=== PATIENT | female | born 1995 | race Caucasian/White ===

== ENCOUNTER 2017-09-11 22:50 | Emergency (ER) | payer MEDICAID, OTHER ==
[2017-09-11] MEDS ORDERED: SUCRALFATE 1 GM TABLET PO ONE (23:18)
[2017-09-11] MEDS ORDERED: ONDANSETRON 4 MG TAB.RAPDIS PO ONE (23:18)
[2017-09-11] MEDS ORDERED: FAMOTIDINE 20 MG TABLET PO ONE (23:18)
--- NOTE | 2017-09-11 23:23 | ER Document Report ---
ED GI/ - General Chief Complaint: Chest Pain Stated Complaint: CHEST PAIN Time Seen by Provider: 09/11/17 23:10 Notes: Patient is a 22-year-old female, at 32 weeks gestation, that comes emergency department for chief complaint of chest pain. She states the pain is in her upper abdomen, she feels it radiate to her back intermittently, she states it started earlier today, worsen, she took Tums and improved, she states after eating it worsened again and this time Tums did not improve her symptoms. She vomited once. She denies shortness of breath (she states she has some baseline shortness of breath in her but no new symptoms). She reports normal bowel movement today. Denies fever or chills. Denies dizziness or passing out. She is feeling baby move, no vaginal bleeding or discharge. No daily medications except for vitamins. Only past medical history reported is GERD. She denies smoking, alcohol, recreational drug use, recent long distance travel, or any surgeries. TRAVEL OUTSIDE OF THE [place] IN LAST 30 DAYS: No - Related Data Allergies/Adverse Reactions: banana [Banana] Allergy (Intermediate, Verified 04/18/13 07:39) Past Medical History - General Information source: Patient - Social History Smoking Status: Never Smoker Frequency of alcohol use: None Drug Abuse: None Lives with: Family Family History: Reviewed & Not Pertinent - Medical History Medical History: Negative Surgical Hx: Negative - Immunizations Immunizations up to date: Yes Review of Systems - Review of Systems Constitutional: No symptoms reported EENT: No symptoms reported Cardiovascular: See HPI Respiratory: No symptoms reported Gastrointestinal: See HPI Genitourinary: No symptoms reported Female Genitourinary: No symptoms reported Musculoskeletal: No symptoms reported Skin: No symptoms reported Hematologic/Lymphatic: No symptoms reported Neurological/Psychological: No symptoms reported Physical Exam - Notes Notes: GENERAL: Alert, interacts well. No acute distress. HEAD: Normocephalic, atraumatic. EYES: Pupils equal, round, and reactive to light. Extraocular movements intact. ENT: Oral mucosa moist, tongue midline. NECK: Full range of motion. Supple. Trachea midline. LUNGS: Clear to auscultation bilaterally, no wheezes, rales, or rhonchi. No respiratory distress. HEART: Regular rate and rhythm. No murmur ABDOMEN: Epigastric tenderness, no right upper quadrant or left upper quadrant tenderness. Gravid abdomen. No lower abdominal tenderness. EXTREMITIES: Moves all 4 extremities spontaneously. No edema, normal radial and dorsalis pedis pulses bilaterally. No cyanosis. BACK: no cervical, thoracic, lumbar midline tenderness. No saddle anesthesia, normal distal neurovascular exam. NEUROLOGICAL: Alert and oriented x3. Normal speech. [cranial nerves II through XII grossly intact]. PSYCH: Normal affect, normal mood. SKIN: Warm, dry, normal turgor. No rashes or lesions noted. Course - Re-evaluation Re-evalutation: EKG showing sinus tachycardia at a rate of 104, QTC 427, IA of 120. T-wave inversions in leads III and aVF, no ST segment changes. On my evaluation patient has a heart rate in the 70s, denies shortness of breath, she does have epigastric tenderness on exam and when asked for her pain is she points to the epigastric area. Unfortunately no comparison EKG. CBC unremarkable, chemistry unremarkable, magnesium checked and unremarkable. Urinalysis suggestive of infection, however patient has no urinary symptoms or abdominal pain. Because of late patient will be covered, culture will be placed. Discussed this with patient. On reevaluation patient symptoms resolved after Carafate, Pepcid, Zofran. Suspect this is gastrointestinal in nature. Patient even states it feels like reflux. Tachycardia resolved, patient does not smoke, no lower extremity swelling, no recent travel, no shortness of breath, only epigastric pain. Low suspicion of pulmonary embolism. I also discussed this with patient. EKG was repeated, much improved, easier to read, isolated T-wave inversion, no heart strain pattern or ischemia pattern noted. Discussed this with Dr. Graham. Very low suspicion of acute coronary syndrome with patient's evaluation and epigastric pain. On reevaluation patient stated she is starting to get the symptoms again, she was given a GI cocktail and symptoms resolved again. Patient is asking to go home. Discussed workup, follow-up, return precautions in detail with patient. Patient states understanding and agreement. - Laboratory Result Diagrams: 09/12/17 00:03 09/12/17 00:03 Laboratory results interpreted by me: 09/12/17 09/12/17 09/12/17 00:03 00:03 00:03 WBC 10.6 H RBC 3.58 L Hgb 11.8 L Hct 34.1 L Alkaline Phosphatase 147 H Albumin 3.4 L Urine Protein 30 H Urine Urobilinogen 2.0 H Ur Leukocyte Esterase LARGE H Discharge - Discharge Clinical Impression: Epigastric pain Condition: Stable Disposition: HOME, SELF-CARE Additional Instructions: Your symptoms and evaluations most consistent with esophagitis/gastritis caused from GERD. Take medications as prescribed, avoid spicy foods, caffeine, smoking, alcohol, NSAIDs. Start with bland food and slowly progress. Pphj-jtl-[id number] medication such as Maalox can help in addition to what you have been prescribed. Return to the emergency department for any concerning symptoms including passing out, difficulty breathing, vomiting, vomiting blood, severe pain, black stools, fever, or any other concerning symptoms. Prescriptions: Cephalexin Monohydrate [Keflex 500 mg Capsule] 500 mg PO BID #14 capsule Famotidine [Pepcid 20 mg Tablet] 20 mg PO BID #14 tablet Sucralfate [Carafate 1 gm Tablet] 1 gm PO QID #20 tablet
[2017-09-12 00:23] LABS: ABSOLUTE EOSINOPHILS # (AUTO) 0.1 10^3/uL (0.0-0.6); ABSOLUTE MONOCYTES (AUTO) 0.9 10^3/uL (0.1-1.4); ABSOLUTE NEUT (AUTO) 6.6 10^3/uL (1.7-8.2); BASOPHILS % (AUTO) 0.3 % (0-2); EOSINOPHILS % (AUTO) 0.7 % (0-6); HEMATOCRIT 34.1 % (36.0-47.0); HEMOGLOBIN 11.8 g/dL (12.0-15.5); LYMPHOCYTES % (AUTO) 28.6 % (13-45); MEAN CORPUSCULAR HGB CONC 34.6 g/dL (32.0-36.0); MEAN CORPUSCULAR VOLUME 95 fl (80-97); MONOCYTES % (AUTO) 8.5 % (3-13); PLATELET COUNT 202 10^3/uL (150-450); RED BLOOD COUNT 3.58 10^6/uL (3.72-5.28); SEGMENTED NEUTROPHILS % (AUTO) 61.9 % (42-78); TOTAL CELLS COUNTED % (AUTO) 100 %; WHITE BLOOD COUNT 10.6 10^3/uL (4.0-10.5)
[2017-09-12 00:30] LABS: ALANINE AMINOTRANSFERASE 13 U/L (9-52); ALBUMIN 3.4 g/dL (3.5-5.0); ALKALINE PHOSPHATASE 147 U/L (38-126); ANION GAP 11 (5-19); ASPARTATE AMINO TRANSFERASE 14 U/L (14-36); BILIRUBIN,DIRECT 0.2 mg/dL (0.0-0.4); BILIRUBIN,TOTAL 0.3 mg/dL (0.2-1.3); BLOOD UREA NITROGEN 7 mg/dL (7-20); CARBON DIOXIDE 22 mmol/L (22-30); CHLORIDE 106 mmol/L (98-107); GLUCOSE 82 mg/dL (75-110); LIPASE 63.7 U/L (23-300); SODIUM 138.7 mmol/L (137-145); TOTAL PROTEIN 6.5 g/dL (6.3-8.2)
[2017-09-12 01:01] LABS: APPEARANCE,URINE CLEAR; BILIRUBIN,URINE NEGATIVE (NEGATIVE); COLOR,URINE STRAW; GLUCOSE, URINE NEGATIVE (NEGATIVE); KETONES,URINE NEGATIVE (NEGATIVE); URINE SPECIFIC GRAVITY 1.024
[2017-09-12 01:06] LABS: PROTEIN,URINE 30 mg/dL (NEGATIVE)
[2017-09-12 01:07] LABS: ADD MANUAL MICROSCOPIC YES; LEUKOCYTE ESTERASE,URINE LARGE (NEGATIVE); NITRITE,URINE NEGATIVE (NEGATIVE)
[2017-09-12 01:08] LABS: BACTERIA,URINE 1+ /HPF
[2017-09-12] MEDS ORDERED: LIDOCAINE 2% VISCOUS SOLN 20 ML UDCUP PO ONE (01:46)
[2017-09-12] MEDS ORDERED: METOCLOPRAMIDE HCL ORAL SOLN 10 MG/10 ML UDCUP PO ONE (01:46)
[2017-09-12] MEDS ORDERED: MAG HYDROX/AL HYDROX/SIMETH SUSP 30 ML UDCUP PO ONE (01:46)
[2017-09-12 03:41] VITALS: BP 119/80
--- NOTE | 2017-09-12 18:22 | EKG REPORT ---
SEVERITY:- ABNORMAL ECG - SINUS ARRHYTHMIA, RATE 59-96 PROBABLE LEFT ATRIAL ABNORMALITY PROBABLE LEFT VENTRICULAR HYPERTROPHY ABNORMAL T, CONSIDER ISCHEMIA, INFERIOR LEADS : Confirmed by: Saundra Caldera 12-Sep-2017 18:21:28
--- NOTE | 2017-09-12 18:22 | EKG REPORT ---
SEVERITY:- ABNORMAL ECG - SINUS TACHYCARDIA MICHAEL, CONSIDER BIATRIAL ABNORMALITIES PROBABLE LVH WITH SECONDARY REPOL ABNRM : Confirmed by: Saundra Caldera 12-Sep-2017 18:21:36
== END 2017-09-12 03:27 | disposition home or self-care (01) ==
LOC: ER 22:50
DX: O26.893 Other specified pregnancy related conditions, third trimester (principal); R10.13 Epigastric pain; R06.02 Shortness of breath; R00.0 Tachycardia, unspecified; O21.2 Late vomiting of pregnancy; Z3A.32 32 weeks gestation of pregnancy; Z87.19 Personal history of other diseases of the digestive system; Z79.899 Other long term (current) drug therapy; Z91.018 Allergy to other foods
CPT/HCPCS: 93005 ×2; 99285; 36415; 87086; 83690; 83735; 85025; 80053; 81001; 93010 ×2; J3490 ×5; S0119

== ENCOUNTER 2017-10-14 22:57 | Inpatient (IN) | payer MEDICAID ==
[2017-10-14 23:26] LABS: APPEARANCE,URINE SLIGHTLY-CLOUDY; BILIRUBIN,URINE NEGATIVE (NEGATIVE); COLOR,URINE YELLOW; GLUCOSE, URINE NEGATIVE (NEGATIVE); KETONES,URINE NEGATIVE (NEGATIVE); LEUKOCYTE ESTERASE,URINE LARGE (NEGATIVE); NITRITE,URINE NEGATIVE (NEGATIVE); PROTEIN,URINE NEGATIVE (NEGATIVE); URINE SPECIFIC GRAVITY 1.023
[2017-10-14] MEDS ORDERED: DINOPROSTONE 10 MG VAGINAL INSERT.SR PV PRN (23:31)
[2017-10-14] MEDS ORDERED: RINGERS SOLUTION,LACTATED 1,000 ML IV PRN (23:31)
[2017-10-14] MEDS ORDERED: RINGERS SOLUTION,LACTATED 300 ML IV ONE (23:31)
[2017-10-14 23:45] LABS: URINE AMPHETAMINES SCREEN NEGATIVE; URINE BARBITURATES SCREEN NEGATIVE; URINE BENZODIAZEPINES SCREEN NEGATIVE; URINE COCAINE SCREEN NEGATIVE; URINE MARIJUANA (THC) SCREEN NEGATIVE; URINE METHADONE SCREEN NEGATIVE; URINE PHENCYCLIDINE SCREEN NEGATIVE
[2017-10-14] MEDS ORDERED: ZOLPIDEM TARTRATE 5 MG TABLET PO ONE (23:45)
[2017-10-15 00:13] LABS: ABSOLUTE MONOCYTES (AUTO) 0.8 10^3/uL (0.1-1.4); ABSOLUTE NEUT (AUTO) 5.7 10^3/uL (1.7-8.2); BASOPHILS % (AUTO) 0.4 % (0-2); EOSINOPHILS % (AUTO) 0.4 % (0-6); HEMOGLOBIN 12.1 g/dL (12.0-15.5); LYMPHOCYTES % (AUTO) 31.3 % (13-45); MEAN CORPUSCULAR HEMOGLOBIN 32.9 pg (27.0-33.4); MEAN CORPUSCULAR HGB CONC 34.6 g/dL (32.0-36.0); MEAN CORPUSCULAR VOLUME 95 fl (80-97); MONOCYTES % (AUTO) 8.1 % (3-13); PLATELET COUNT 184 10^3/uL (150-450); RED BLOOD COUNT 3.69 10^6/uL (3.72-5.28); RED CELL DISTRIBUTION WIDTH 13.2 % (11.5-14.0); SEGMENTED NEUTROPHILS % (AUTO) 59.8 % (42-78); TOTAL CELLS COUNTED % (AUTO) 100 %; WHITE BLOOD COUNT 9.5 10^3/uL (4.0-10.5)
[2017-10-15] MEDS ORDERED: DINOPROSTONE 10 MG VAGINAL INSERT.SR ONE (00:24)
--- NOTE | 2017-10-15 06:04 | Admission Physical ---
Datetime Report Generated by CPN: 10/15/2017 06:04 CURRENT ADMISSION Chief Complaint: Scheduled Induction of Labor Indication for Induction: Post Dates Admit Impression : Postterm, Intrauterine ; Induction of Labor Admit Plan: Admit to Unit; Initiate Labor Induction Protocol ALLERGIES Medication Allergies: No Medication Allergies: banana/MO (10/14/2017) Latex: No Latex Allergies Food Allergies: Banana Environmental Allergies: cats OBSTETRICAL HISTORY EDC: 10/05/2017 00:00 : 1 Para: 0 Term: 0 : 0 SAB: 0 IAB: 0 Ectopic: 0 Livin Cesareans: 0 VBACs: 0 Multiple Births: 0 Gestational Diabetes: No Rh Sensitization: No Incompetent Cervix: No PRASANNA: No Infertility: No ART Treatment: No Uterine Anomaly: No IUGR: No Hx Previous C/S: No Macrosomia: No Hx Loss/Stillborn: No PIH: No Hx : No Placenta Previa/Abruption: No Depression/PP Depression: No PTL/PROM: No Post Hemorrhage: No Current Procedures: Ultrasound; NST Obstetrical History Comments: G1-Current late to [facility] SEE RECORDS Alcohol: No Marijuana : No Cocaine: No Other Illicit Drugs: No Cigarettes: Never Smoker. [id number] MEDICAL HISTORY Diabetes: No Blood Transfusion: No Pulmonary Disease (Asthma, TB): Yes Breast Disease: No Hypertension: No Investment Counselor Surgery: No Heart Disease: No Hosp/Surgery: No Autoimmune Disorder: No Anesthetic Complications: No Kidney Disease: No Abnormal Pap Smear: No Neuro/Epilepsy: No Psychiatric Disorders: Yes Other Medical Diseases: No Hepatitis/Liver Disease: No Significant Family History: No Varicosities/Phlebitis: No Trauma/Violence : No Thyroid Dysfunction: No Medical History Comments: Depression, anxiety, Obesity, asthma INFECTIOUS HISTORY Gonorrhea: No Genital Herpes: No Chlamydia: No Tuberculosis: No Syphilis: No Hepatitis: No HIV/AIDS Exposure: No Rash or Viral Illness: No HPV: No PHYSICAL EXAM General: Normal HEENT: Normal Neurologic: Normal Thyroid: Normal Heart: Normal Lungs: Normal Breast: Normal Back: Normal Abdomen: Normal Genitourinary Exam: Normal Extremities: Normal DTRs: Normal Pelvic Type: Adequate Vital Signs: Reviewed; Within Normal Limits VAGINAL EXAM Dilatation: 1 Effacement: 60 Station: -2 MEMBRANES Pooling: Negative Membranes: Intact FETUS A EGA: 41.3 Monitoring: External US FHR- Baseline: 120 Variability: Moderate 6-25bpm Accelerations: 15X15 Decelerations: None FHR Category: Category I Estimated Weight (gm): 3500 Presentation: Vertex PLANS FOR LABOR AND DELIVERY Labor and Delivery: Plan Pain Management: Medications Feeding Preference: Breast Circumcision: No INFORMED CONSENT Signature: with User ID: [email or web address]
[2017-10-15] MEDS ORDERED: OXYTOCIN/NORMAL SALINE 20 UNIT/1,000 ML RTUINJ IV PRN ×2 (10:27→21:05)
[2017-10-15] MEDS ORDERED: OXYTOCIN/NORMAL SALINE 20 UNIT/1,000 ML RTUINJ ONE (10:33)
[2017-10-15] MEDS ORDERED: FENTANYL/BUPIVACAINE/NS/PF 200 MCG/100 ML RTUINJ EPI ONE (12:39)
[2017-10-15] MEDS ORDERED: EPHEDRINE SULFATE INJ 50 MG/1 ML AMPULE ONE (12:39)
[2017-10-15] MEDS ORDERED: BUPIVACAINE HCL 0.5 % INJ/PF 30 ML SDV ONE (12:40)
--- NOTE | 2017-10-15 13:14 | L&D Progress Notes ---
PROGRESS NOTES Datetime Report Generated by CPN: 10/15/2017 13:14 PROGRESS NOTE Impression: Normal Progression of Labor Procedures: Artificial ROM Plan: Continue Present Management Comment: Pt requesting epidural for pain mgmt, pitocin at 6 mu VAGINAL EXAM Dilatation: 3 Dilatation: 1 Effacement: 100 Effacement: 60 Station: -2 Station: -2 MEMBRANES Pooling: Negative Membranes: Ruptured Membranes: Intact Amniotic Fluid Color: Clear FETUS A FHR - Baseline: 135 Variability: Moderate 6-25bpm Accelerations: 15X15 Decelerations: Variable FHR Category: Category II : 41.3 : 41.3 Estimated Weight (gm): 3500 Presentation: Vertex SIGNATURE SIGNATURE: ,[id number] SIGNATURE: [id number] Assignment: Aleksandra Betancourt MD Signature: with User ID: [email or web address] : with User ID: [email or web address]
[2017-10-15] MEDS ORDERED: LIDOCAINE 1% INJ-PF (10 MG/ML) 30 ML SDV ONE ×2 (13:59→16:43)
[2017-10-15] MEDS ORDERED: FENTANYL CITRATE INJ/PF 100 MCG/2 ML AMPUL IV ONE (14:24)
[2017-10-15] MEDS ORDERED: MISOPROSTOL 0.2 MG TABLET ONE (16:43)
[2017-10-15] MEDS ORDERED: ACETAMINOPHEN WITH CODEINE #3 TABLET PO PRN ×2 (21:05)
[2017-10-15] MEDS ORDERED: DIPHENHYDRAMINE HCL 25 MG CAPSULE PO PRN (21:05)
[2017-10-15] MEDS ORDERED: MAGNESIUM HYDROXIDE SUSP 30 ML UDCUP PO PRN (21:05)
[2017-10-15] MEDS ORDERED: BENZOCAINE/MENTHOL AEROSOL SPRAY 56 ML TOP PRN (21:05)
[2017-10-15] MEDS ORDERED: DIBUCAINE 1% OINTMENT 28 GM TP PRN (21:05)
[2017-10-15] MEDS ORDERED: ACETAMINOPHEN 650 MG SUPP.RECT PR PRN (21:05)
[2017-10-15] MEDS ORDERED: MEASLES,MUMPS&RUBELLA VACC/PF 0.5 ML VIAL SUBCUT PRN (21:05)
[2017-10-15] MEDS ORDERED: PROMETHAZINE HCL 25 MG SUPP.RECT PR PRN (21:05)
[2017-10-15] MEDS ORDERED: NA PHOS,M-B/NA PHOS,DI-BA (ADULT) 133 ML ENEMA PR PRN (21:05)
[2017-10-15] MEDS ORDERED: PROMETHAZINE HCL 25 MG TABLET PO PRN (21:05)
[2017-10-15] MEDS ORDERED: ZOLPIDEM TARTRATE 5 MG TABLET PO PRN (21:05)
[2017-10-15] MEDS ORDERED: PSEUDOEPHEDRINE HCL 30 MG TABLET PO PRN (21:05)
[2017-10-15] MEDS ORDERED: PROMETHAZINE HCL INJ 25 MG/1 ML VIAL IV PRN (21:05)
[2017-10-15] MEDS ORDERED: DIPH/PERTUSS(ACELL)/TETANUS VAC/PF 0.5 ML SYR (>=10YO) IM PRN (21:05)
[2017-10-15] MEDS ORDERED: GLYCERIN/WITCH HAZEL LEAF 1 EACH MED..PAD TP PRN (21:05)
[2017-10-15] MEDS ORDERED: IBUPROFEN 800 MG TABLET ONE (21:41)
[2017-10-15] MEDS: FAMOTIDINE 20 MG TABLET PO SCH (21:48)
[2017-10-15] MEDS ORDERED: IBUPROFEN 800 MG TABLET PO SCH (22:00)
[2017-10-15] MEDS ORDERED: ZOLPIDEM TARTRATE 5 MG TABLET PO SCH (22:00)
[2017-10-16] MEDS ORDERED: OXYTOCIN/NORMAL SALINE 20 UNIT/1,000 ML RTUINJ IV PRN (01:24)
[2017-10-16] MEDS ORDERED: BENZOCAINE/MENTHOL AEROSOL SPRAY 56 ML TOP PRN (01:24)
[2017-10-16] MEDS ORDERED: DIBUCAINE 1% OINTMENT 28 GM TP PRN (01:24)
[2017-10-16] MEDS ORDERED: MEASLES,MUMPS&RUBELLA VACC/PF 0.5 ML VIAL SUBCUT PRN (01:24)
[2017-10-16] MEDS ORDERED: DIPH/PERTUSS(ACELL)/TETANUS VAC/PF 0.5 ML SYR (>=10YO) IM PRN (01:24)
[2017-10-16] MEDS ORDERED: ACETAMINOPHEN WITH CODEINE #3 TABLET PO PRN ×2 (01:24)
[2017-10-16] MEDS ORDERED: ZOLPIDEM TARTRATE 5 MG TABLET PO PRN (01:24)
[2017-10-16] MEDS: FAMOTIDINE 20 MG TABLET PO SCH ×2 (09:23→22:01)
[2017-10-16] MEDS: PRENATAL VITAMIN W DHA CAPSULE PO SCH (09:23)
[2017-10-16 09:24] LABS: HEMATOCRIT 31.1 % (36.0-47.0); HEMOGLOBIN 10.6 g/dL (12.0-15.5); MEAN CORPUSCULAR HEMOGLOBIN 32.8 pg (27.0-33.4); MEAN CORPUSCULAR HGB CONC 34.1 g/dL (32.0-36.0); MEAN CORPUSCULAR VOLUME 96 fl (80-97); PLATELET COUNT 159 10^3/uL (150-450); RED BLOOD COUNT 3.23 10^6/uL (3.72-5.28); RED CELL DISTRIBUTION WIDTH 13.6 % (11.5-14.0); WHITE BLOOD COUNT 15.5 10^3/uL (4.0-10.5)
[2017-10-16] MEDS: SENNOSIDES/DOCUSATE 8.6-50 MG 1 EACH TABLET PO SCH (09:24)
[2017-10-16] MEDS: DOCUSATE SODIUM 100 MG CAPSULE PO SCH ×2 (09:24→17:37)
[2017-10-16] MEDS: FERROUS SULFATE 325 MG TABLET PO SCH ×2 (09:24→17:36)
[2017-10-16] MEDS ORDERED: SENNOSIDES/DOCUSATE 8.6-50 MG 1 EACH TABLET PO SCH (10:00)
[2017-10-16] MEDS ORDERED: DOCUSATE SODIUM 100 MG CAPSULE PO SCH (10:00)
[2017-10-16] MEDS ORDERED: FERROUS SULFATE 325 MG TABLET PO SCH (10:00)
[2017-10-16] MEDS ORDERED: PRENATAL VITAMIN W DHA CAPSULE PO SCH (10:00)
--- NOTE | 2017-10-16 10:30 | PDOC PROGRESS REPORT ---
Subjective-OB Progress Note for:: 10/16/17 Subjective: Doing well, no c/o, Physical Exam (OB) Vital Signs: Temp Pulse Resp BP Pulse Ox 97.9 F 106 H 20 110/69 99 10/15/17 23:31 10/15/17 23:31 10/15/17 23:31 10/15/17 23:31 10/15/17 23:31 Intake & Output 10/15/17 10/16/17 10/17/17 06:59 06:59 06:59 Intake Total 200 Balance 200 Weight 103.9 kg - PIH/Pre-Eclampsia DTR's: 1 + Headache: Absent Epigastric Pain: No Visual Changes: No - Lochia Lochia Amount: Scant < 10 ml Lochia Color: Rubra/Red - Abdomen Description: Tender, Soft Hernia Present: No Fundal Description: Firm, Midline Fundal Height: u/u - u/2 Objective-Diagnostic Laboratory: 10/16/17 07:59 10/16/17 07:59 WBC 15.5 H RBC 3.23 L Hgb 10.6 L Hct 31.1 L MCV 96 MCH 32.8 MCHC 34.1 RDW 13.6 Plt Count 159 Assessment and Plan(PN) - Assessment and Plan (1) Asthma Qualifiers: Asthma complication type: unspecified Is this a current diagnosis for this admission?: Yes (2) Delivery normal Is this a current diagnosis for this admission?: Yes (3) Depression Qualifiers: Depression Type: unspecified Qualified Code(s): F32.9 - Major depressive disorder, single episode, unspecified Is this a current diagnosis for this admission?: Yes (4) Anxiety Is this a current diagnosis for this admission?: Yes - Time Spent with Patient Time with patient: Less than 15 minutes Medications reviewed and adjusted accordingly: Yes - Disposition Anticipated Discharge: Home Within: within 48 hours
[2017-10-16] MEDS: IBUPROFEN 800 MG TABLET PO SCH ×2 (11:00→17:37)
[2017-10-17] MEDS: IBUPROFEN 800 MG TABLET PO SCH (05:38)
[2017-10-17 08:22] VITALS: BP 119/60
[2017-10-17] MEDS ORDERED: IBUPROFEN 800 MG TABLET PO SCH (10:00)
[2017-10-17] MEDS: DOCUSATE SODIUM 100 MG CAPSULE PO SCH (10:05)
[2017-10-17] MEDS: SENNOSIDES/DOCUSATE 8.6-50 MG 1 EACH TABLET PO SCH (10:05)
[2017-10-17] MEDS: FAMOTIDINE 20 MG TABLET PO SCH (10:06)
[2017-10-17] MEDS: PRENATAL VITAMIN W DHA CAPSULE PO SCH (10:06)
[2017-10-17] MEDS: FERROUS SULFATE 325 MG TABLET PO SCH (10:06)
--- NOTE | 2017-10-17 10:13 | PDOC DISCHARGE SUMMARY ---
Final Diagnosis Discharge Date: 10/17/17 - Final Diagnosis (1) Delivery normal Is this a current diagnosis for this admission?: Yes Discharge Data - Discharge Medication Prescriptions: Ibuprofen [Motrin 800 mg Tablet] 800 mg PO Q8A #30 tablet Home Medications: Prenatl Vit6/Iron/FA/B12/Ca/D3 [Mteryti Combo Pack] 1 each PO DAILY 10/14/17 Ibuprofen [Motrin 800 mg Tablet] 800 mg PO Q8A #30 tablet 10/17/17 Reason(s) for Admission: Onset of Labor - Diagnosis Test Laboratory: Temp Pulse Resp BP Pulse Ox 98.2 F 62 18 119/60 98 10/17/17 07:58 10/17/17 07:58 10/17/17 07:58 10/17/17 07:58 10/17/17 07:58 10/14/17 10/14/17 10/16/17 23:00 23:26 07:59 RBC 3.69 L 3.23 L Hgb 12.1 10.6 L Hct 35.0 L 31.1 L Urine Opiates Screen NEGATIVE - Discharge information/Instructions Discharge Activity: Pelvic Rest, No tub bath Discharge Diet: As Tolerated Disposition: HOME, SELF-CARE Follow up with: [facility] in: 4, Weeks
--- NOTE | 2017-10-30 11:16 | Delivery Summary ---
Del Sum A-C Datetime Report Generated by CPN: 10/30/2017 11:16 DELIVERY PERSONNEL DELIVERY PERSONNEL: [id number] Delivery Doctor:: Aleksandra Betancourt MD Labor and Delivery Nurse:: Malina Santos RN Labor and Delivery Nurse:: Patricia Sommer RN Nursery Nurse:: Sydnee Saeed RN Straw Baler/CARLOS: Fara Pizarro CNA Additional Personnel: : Marli Hines RN MATERNAL INFORMATION Delivery Anesthesia: Epidural Medications After Delivery: Pitocin Drip 20 Units/1000ml NSS Estimated Blood Loss (ml): 250 Maternal Complications: None LABOR SUMMARY EDC: 10/05/2017 00:00 No. Babies in Womb: 1 Attempted: No Labor Anesthesia: Epidural LABOR INFORMATION Reason for Induction: Postterm Onset of Labor: 10/15/2017 10:52 Complete Dilatation: 10/15/2017 19:19 Oxytocin: Induction Group B Beta Strep: Negative Steroids Given: None Reason Steroids Not Administered: Not Applicable MEMBRANES Membranes Rupture Method: Artificial Rupture of Membranes: 10/15/2017 13:05 Length of Rupture (hr): 7.65 Amniotic Fluid Color: Clear Amniotic Fluid Amount: Small Amniotic Fluid Odor: Normal STAGES OF LABOR Stage 1 hr: 8 Stage 1 min: 27 Stage 2 hr: 1 Stage 2 min: 25 Stage 3 hr: 0 Stage 3 min: 3 Total Time in Labor hr: 9 Total Time in Labor min: 55 VAGINAL DELIVERY Episiotomy: None Laceration #1: Perineal Laceration Extension #1: Second Degree Laceration #2: None Laceration Extension #2: N/A Laceration #3: None Laceration Extension #3: N/A Laceration Repair: Yes Laceration Repair Note: repair with 3-0 chromic suture in usual fashion Sponge Count Correct: N/A; Vaginal Sweep Performed Sharps Count Correct: Yes CSECTION DELIVERY Primary Indication: N/A Secondary Indication: N/A CSection Incidence: N/A Labor: N/A Elective: N/A CSection Incision: N/A BABY A INFORMATION Delivery Date/Time: 10/15/2017 20:44 Method of Delivery: Vaginal Method of Delivery: Vaginal Born in Route : No : N/A Forceps: N/A Vacuum Extraction: Successful Shoulder Dystocia : No ASSISTED DELIVERY BABY A Indication for Assisted Delivery: Maternal exhaustion Catheter Prior to Procedure: No Station Vacuum/Forcep Apply: outlet Position Vacuum/Forcep Apply: Right Occipital Anterior Vacuum Number of Pulls: one Vacuum Number of PopOffs: none Vacuum Maximum Pressure Obtained: 550 Reduce Pressure btwn Ctx: Yes Vacuum Whipped Topping Finisher: Isis Total Time Vacuum Applied: 20 seconds Vacuum/Forceps Comment: Delivery with one pull with the pressure in the green on the kiwi. The mother gave verbal consent prior to the procedure. PRESENTATION/POSITION BABY A Presentation: Cephalic Presentation: Cephalic Cephalic Presentation: Vertex Vertex Position: Right Occipital Anterior Breech Presentation: N/A PLACENTA INFORMATION BABY A Placenta Delivery Time : 10/15/2017 20:47 Placenta Method of Delivery: Spontaneous Placenta Method of Delivery: Spontaneous Placenta Status: Delivered SCORES BABY A Heart Rate 1 min: >100 bpm Resp Effort 1 min: Good Cry Reflex Irritability 1 min: Cough or Sneeze or Pulls Away Muscle Tone 1 min: Active Motion Color 1 min: Blue/Pale Resuscitation Effort 1 min: Tactile Stimulation SCORE 1 MIN: 8 Heart Rate 5 min: >100 bpm Resp Effort 5 min: Good Cry Reflex Irritability 5 min: Cough or Sneeze or Pulls Away Muscle Tone 5 min: Active Motion Color 5 min: Body Sheldahl, Extremities Blue Resuscitation Effort 5 min: Tactile Stimulation SCORE 5 MIN: 9 INFANT INFORMATION BABY A Gestational Age at Delivery: 41.3 Gestational Status: Late Term- 41- 41.6 Weeks Outcome : Liveborn Condition : Stable Infant Sex: Male Infant Sex: Male IDENTIFICATION BABY A Verification Date/Time: 10/15/2017 20:54 ID Band Number: [id number] Mother's Name Verified: Yes Infant RN Verifying : Jason Santos, ALIYA Pizarro RN WEIGHT/LENGTH BABY A Infant Birthweight (gm): 3660 Infant Weight (lb): 8 Infant Weight (oz): 1 Length (in): 20.00 Length (cm): 50.80 CORD INFORMATION BABY A No. Cord Vessels: 3 Nuchal Cord : N/A Cord Blood Taken: Yes-For Eval (Mom's Blood Type - or O+) Infant Suction: Mouth; Nose ASSESSMENT BABY A Infant Complications: None Physical Findings at Delivery: Within Normal Limits Respirations: Appears Normal Skin to Skin: Yes Skin to Skin: Yes Top Icer/ALS Called : No Infant Care By: Keaton Hines RN Transferred To: Remains with Mother SIGNATURES Signature: with User ID: [email or web address] : I was personally available for consultation and serving as supervising physician for the P.
== END 2017-10-17 16:10 | disposition home or self-care (01) | DRG 775 ==
LOC: LR 22:57 → 2N 10-15 23:33
PROVIDERS: ADMIT Obstetrics & Gynecology; ATTEND Obstetrics & Gynecology
PROC: 10D07Z6 Extraction of Products of Conception, Vacuum, Via Natural or Artificial Opening (ICD-10-PCS; principal; 2017-10-15)
DX: O48.0 Post-term pregnancy (principal); Z37.0 Single live birth; O99.52 Diseases of the respiratory system complicating childbirth; O99.344 Other mental disorders complicating childbirth; O99.214 Obesity complicating childbirth; O70.1 Second degree perineal laceration during delivery; O75.81 Maternal exhaustion complicating labor and delivery; J45.909 Unspecified asthma, uncomplicated; F41.8 Other specified anxiety disorders; Z3A.41 41 weeks gestation of pregnancy
CPT/HCPCS: 36415; 80307; 81005; 85025; 85027; 86592; 86850; 86900; 86901; 94760; J2590; J3490

== ENCOUNTER 2019-09-21 11:37 | Emergency (ER) | payer MEDICAID ==
[2019-09-21 12:41] VITALS: BP 140/80
[2019-09-21] MEDS ORDERED: KETOROLAC TROMETHAMINE INJ/PF 30 MG/1 ML SDV IV ONE (13:33)
--- NOTE | 2019-09-21 13:54 | ER Document Report ---
Entered by HELADIO HUTTON SCRIBE 09/21/19 1338 Acting as scribe for:YAMEL MERCER MD ED GI/ - General Chief Complaint: Abdominal Pain Stated Complaint: ABDOMINAL PAIN Time Seen by Provider: 09/21/19 13:09 Primary Care Provider: CAROL SIMPSON MD [Primary Care Provider] - Follow up as needed Mode of Arrival: Ambulatory Information source: Patient Notes: This 24 year old female patient presents to the emergency department today with complaints of lower back and diffuse abdominal pain yesterday which got worst last night. She reports that between 10:40-11:00 AM this morning when using the bathroom the pain became much worse and localized to her left flank and left abdomen. Now she reports a dull ache in the left flank and abdominal discomfort. Patient is nauseated but denies vomiting. TRAVEL OUTSIDE OF THE [place] IN LAST 30 DAYS: No - Related Data Allergies/Adverse Reactions: banana [Banana] Allergy (Intermediate, Verified 09/21/19 13:48) cat dander Allergy (Verified 09/21/19 13:48) dog dander Allergy (Verified 09/21/19 13:48) Past Medical History - General Information source: Patient - Social History Smoking Status: Never Smoker Cigarette use (# per day): No Frequency of alcohol use: None Drug Abuse: None Occupation: unemployed Lives with: Family Family History: Other - Father has a history of kidney stones. Musculoskeletal Medical History: Reports Hx Arthritis Surgical Hx: Negative - Immunizations Immunizations up to date: Yes Review of Systems - Review of Systems Constitutional: No symptoms reported EENT: No symptoms reported Cardiovascular: No symptoms reported Respiratory: No symptoms reported Gastrointestinal: See HPI, Abdominal pain, Nausea. denies: Vomiting Genitourinary: See HPI, Flank pain Female Genitourinary: Last menstrual period - Sep 10 Musculoskeletal: See HPI, Back pain Skin: No symptoms reported Hematologic/Lymphatic: No symptoms reported Neurological/Psychological: No symptoms reported -: Yes All other systems reviewed and negative Physical Exam - Vital signs Vitals: Temp 98.6 F 09/21/19 12:36 - Notes Notes: Physical Exam: General: Alert, appears well. HEENT: Normocephalic. Atraumatic. PERRL. Extraocular movements intact. Oropharynx clear. Neck: Supple. Non-tender. Respiratory: No respiratory distress. Clear and equal breath sounds bilaterally. Cardiovascular: Regular rate and rhythm. Abdominal: Obese. No suprapubic tenderness to palpation. No distension. Normal Bowel Sounds. Back: Tenderness with palpation of the paralumbar musculature. Mild left CVA tenderness to percussion. Extremities: Moves all four extremities. Upper extremities: Normal inspection. Normal ROM. Lower extremities: Normal inspection. No edema. Normal ROM. Neurological: Normal cognition. AAOx4. Normal speech. Psychological: Normal affect. Normal Mood. Skin: Warm. Dry. Normal color. Course - Re-evaluation Re-evalutation: 09/21/19 15:27 Catheterized urine showed 121 RBCs on micro and large blood on dipstick. CT scan suggested 3 mm stone near the bladder and possibly some minimal hydroureter hydronephrosis on the left. Patient reports that the pain had been getting better before she came, and is much better after the Toradol. - Vital Signs Vital signs: Temp Pulse Resp BP Pulse Ox 98.6 F 72 18 140/80 H 100 09/21/19 12:39 09/21/19 12:39 09/21/19 12:39 09/21/19 12:39 09/21/19 12:39 - Laboratory Result Diagrams: 09/21/19 13:40 09/21/19 13:40 Laboratory results interpreted by me: 09/21/19 14:12 Urine Blood LARGE H Discharge - Discharge Clinical Impression: Renal colic on left side Condition: Stable Disposition: HOME, SELF-CARE Additional Instructions: Kidney Stone: You are passing a kidney stone. These stones are usually due to increased calcium or uric acid concentrations in your urine. Stones within the kidney itself are not painful. The pain occurs as the stone leaves the kidney to pass down the long tube, called the ureter, leading to the bladder. If the stone is small, it will usually pass by itself. Most patients can pass the stone at home. You will usually receive medications for pain, nausea or vomiting, and sometimes a medication to assist in passing the kidney stone. However, if the pain is very severe or if vomiting prevents you from taking oral pain medications, you may need to return for further treatment. Drink three or four quarts of fluids per day. You will be given pain medication (if needed) and urine strainers. Strain all your urine to see if the stone passes. If your doctor has asked you to bring the stone in for analysis, return with the stone once it has passed. Return if pain or vomiting become severe, if you develop a high fever, if you are unable to pass your urine, or if other unusual symptoms occur. Start taking the Flomax as prescribed tomorrow, until you pass the stone or are no longer in pain. Drink plenty of water throughout the day in the evening. Strain your urine. Take ibuprofen 600 mg every 8 hours until you pass the stone or have become pain-free. Take the pain medication as dispensed if ibuprofen is not enough to control your pain. Follow-up with your primary care provider if not improving. RETURN TO THE EMERGENCY ROOM IF ANY NEW OR WORSENING SYMPTOMS. Prescriptions: Tamsulosin HCl [Flomax 0.4 mg Cap.sr] 0.4 mg PO DAILY #7 cap.sr.24h Referrals: CAROL SIMPSON MD [Primary Care Provider] - Follow up as needed I personally performed the services described in the documentation, reviewed and edited the documentation which was dictated to the scribe in my presence, and it accurately records my words and actions.
[2019-09-21 14:01] LABS: ABSOLUTE EOSINOPHILS # (AUTO) 0.1 10^3/uL (0.0-0.6); ABSOLUTE LYMPHOCYTES (AUTO) 2.6 10^3/uL (0.5-4.7); ABSOLUTE MONOCYTES (AUTO) 0.6 10^3/uL (0.1-1.4); ABSOLUTE NEUT (AUTO) 4.5 10^3/uL (1.7-8.2); BASOPHILS % (AUTO) 0.3 % (0-2); EOSINOPHILS % (AUTO) 0.7 % (0-6); HEMATOCRIT 40.8 % (36.0-47.0); HEMOGLOBIN 14.5 g/dL (12.0-15.5); MEAN CORPUSCULAR HEMOGLOBIN 33.3 pg (27.0-33.4); MEAN CORPUSCULAR HGB CONC 35.6 g/dL (32.0-36.0); MEAN CORPUSCULAR VOLUME 94 fl (80-97); MONOCYTES % (AUTO) 7.1 % (3-13); PLATELET COUNT 216 10^3/uL (150-450); RED BLOOD COUNT 4.36 10^6/uL (3.72-5.28); RED CELL DISTRIBUTION WIDTH 12.7 % (11.5-14.0); SEGMENTED NEUTROPHILS % (AUTO) 57.9 % (42-78); TOTAL CELLS COUNTED % (AUTO) 100 %; WHITE BLOOD COUNT 7.8 10^3/uL (4.0-10.5)
[2019-09-21 14:19] LABS: ALBUMIN 4.3 g/dL (3.5-5.0); ALKALINE PHOSPHATASE 71 U/L (38-126); ANION GAP 5 (5-19); ASPARTATE AMINO TRANSFERASE 28 U/L (14-36); BILIRUBIN,TOTAL 0.3 mg/dL (0.2-1.3); BLOOD UREA NITROGEN 10 mg/dL (7-20); CALCIUM 9.6 mg/dL (8.4-10.2); CARBON DIOXIDE 28 mmol/L (22-30); CHLORIDE 105 mmol/L (98-107); GLUCOSE 85 mg/dL (75-110); TOTAL PROTEIN 7.6 g/dL (6.3-8.2)
[2019-09-21 14:40] LABS: APPEARANCE,URINE CLEAR; BILIRUBIN,URINE NEGATIVE (NEGATIVE); COLOR,URINE STRAW; GLUCOSE, URINE NEGATIVE (NEGATIVE); KETONES,URINE NEGATIVE (NEGATIVE); LEUKOCYTE ESTERASE,URINE NEGATIVE (NEGATIVE); NITRITE,URINE NEGATIVE (NEGATIVE); PROTEIN,URINE NEGATIVE (NEGATIVE); URINE SPECIFIC GRAVITY 1.012; UROBILINOGEN,URINE NEGATIVE mg/dL (<2.0)
--- NOTE | 2019-09-21 15:14 | RADIOLOGY REPORT (SQ) ---
EXAM DESCRIPTION: CT ABD/PELVIS NO ORAL OR IV IMAGES COMPLETED DATE/TIME: 09/21/2019 3:01 pm REASON FOR STUDY: Left flank pain with hematuria COMPARISON: 04/18/2013. TECHNIQUE: CT scan of the abdomen and pelvis performed without intravenous or oral contrast. Images reviewed with lung, soft tissue, and bone windows. Reconstructed coronal and sagittal MPR images revi ewed. All images stored on PACS. All CT scanners at this facility use dose modulation, iterative reconstruction, and/or weight based d osing when appropriate to reduce radiation dose to as low as reasonably achievable (ALARA). [facility]: Dose Right [facility]: CareDose [facility]: Dose Right [facility]: Teradose 4D [facility]: [employer] RADIATION DOSE: mGy. LIMITATIONS: None. FINDINGS: LOWER CHEST: No significant findings. No nodules or infiltrates. NON-CONTRASTED LIVER, SPLEEN, ADRENALS: Evaluation limited by lack of IV contrast. No identified sign ificant masses. PANCREAS: No masses. No peripancreatic inflammatory changes. GALLBLADDER: No identified stones by CT criteria. No inflammatory changes to suggest cholecystitis. RIGHT KIDNEY AND URETER: No suspicious masses. Assessment limited by lack of IV contrast. No signif icant calcifications. No hydronephrosis or hydroureter. LEFT KIDNEY AND URETER: No suspicious masses. Assessment limited by lack of IV contrast. 3 mm calci fication in the pelvis lateral to the bladder (axial series 3, image 84). Difficult to determine if this is within the distal ureter or an adjacent calcified phlebolith. Minimal hydronephrosis and hy droureter. AORTA AND RETROPERITONEUM: No aneurysm. No retroperitoneal masses or adenopathy. BOWEL AND PERITONEAL CAVITY: No obvious masses or inflammatory changes. No free fluid. APPENDIX: Normal. PELVIS, BLADDER, AND ABDOMINAL WALL:No abnormal masses. No free fluid. Bladder normal. BONES: No significant findings. OTHER: No other significant finding. IMPRESSION: 1. 3 MM CALCIFICATION IN THE LEFT PELVIS DESCRIBED. DIFFICULT TO DETERMINE IF THIS IS A DISTAL UR ETERAL CALCULUS WITH MINIMAL HYDRONEPHROSIS AND HYDROURETER OR IF THIS IS AN ADJACENT CALCIFIED PHLEB OLITHS. 2. NO OTHER SIGNIFICANT OR ACUTE PROCESS IN THE ABDOMEN OR PELVIS. COMMENT: Quality ID # [id number]: Final reports with documentation of one or more dose reduction techniques (e.g., Automated exposure control, adjustment of the mA and/or kV according to patient size, use of iterative reconstruction technique) TECHNICAL DOCUMENTATION: JOB ID: [id number] 2010 [employer]- All Rights Reserved Reading location - IP/workstation name: [email or web address]
[2019-09-21] MEDS ORDERED: HYDROCODONE/ACETAMINOPHEN 5-325 MG (6 TAB/ER DISP) PO PRN (15:29)
[2019-09-21] MEDS ORDERED: TAMSULOSIN HCL 0.4 MG CAP.SR.24H PO ONE (15:29)
== END 2019-09-21 15:50 | disposition home or self-care (01) ==
LOC: ER 11:37
DX: N23 Unspecified renal colic (principal); R31.9 Hematuria, unspecified; M54.5 Low back pain; R11.0 Nausea; Z91.018 Allergy to other foods; Z91.048 Other nonmedicinal substance allergy status
CPT/HCPCS: 99285; 96374; 36415; 83690; 84703; 85025; 80053; 81001; 74176; J1885; J3490